=== PATIENT | male | born 1995 | race Caucasian/White ===

== ENCOUNTER 2022-06-15 09:30 | Emergency (ER) | payer OTHER, SELFPAY ==
--- NOTE | ~2022-06-15 | CT_ITS ---
EXAMINATION: CT cervical spine wo con DATE: 06/15/2022 11:18 INDICATION: Head injury TECHNIQUE: Computed tomography (CT) of the cervical spine was performed without intravenous contrast. Automated exposure control and iterative reconstruction technique were employed. The dose-length pro duct was 544.66 mGy-cm. COMPARISON: None FINDINGS: Mild reversal of the normal cervical lordosis most likely positional although differential would incl ude muscle spasm. No spondylolisthesis or facet subluxation. Vertebral body and disc heights are norm al. No fracture. Cervical facet and uncovertebral joints are normal. Cervical soft tissues are unrema rkable. Visualized apices of the lungs are clear. IMPRESSION: 1. Likely positional mild reversal of the normal cervical lordosis. Otherwise unremarkable cervical s pine CT. Reviewed, dictated and finalized at location A. IMPRESSION: 1. Likely positional mild reversal of the normal cervical lordosis. Otherwise u nremarkable cervical spine CT.
--- NOTE | ~2022-06-15 | CT_ITS ---
EXAMINATION: CT brain wo con DATE: 06/15/2022 11:17 INDICATION: Head injury TECHNIQUE: Computed tomography (CT) of the head was performed without intravenous contrast. Sagittal and coronal reconstructions were performed. The mA was adjusted according to patient size. Iterative reconstruction technique was employed. The dose-length product was 605.33 mGy-cm. COMPARISON: None FINDINGS: No calvarial fracture. No acute intracranial hemorrhage, acute infarction or abnormal extra axial flu id collection. Ventricles are normal and symmetric. No mass/mass effect. The orbits, paranasal sinuse s and mastoid air cells are normal. IMPRESSION: 1. Normal head CT. No fracture or acute intracranial process. Reviewed, dictated and finalized at location A.
[2022-06-15 09:36] VITALS: BP 145/73; PULSE 54; RESP 18; TEMP 36.4; O2SAT 100
[2022-06-15 11:25] VITALS: BP 128/81; PULSE 61
[2022-06-15 11:28] VITALS: BP 131/83; PULSE 68
[2022-06-15 11:30] VITALS: BP 136/99; PULSE 71
--- NOTE | 2022-06-15 12:58 | ED.HEATRA ---
HPI - Head Injury General Chief complaint: Head Injury Stated complaint: Hit head yesterday has felt dizzy since Time Seen by Provider: 06/15/22 11:20 Source: patient Mode of arrival: ambulatory Limitations: no limitations History of Present Illness HPI Narrative: Patient is a 27-year-old male who presents to the ED with report of head injury. Patient reports he was putting his son in the carseat yesterday when he stood up suddenly and hit his head against the roof of his car. Denied any LOC. Since then, patient has had intermittent dizziness/lightheadedness. He states he has a history of migraines in the past that would cause him to blackout and patient has been feeling summarily since hitting his head, which prompted his presentation. He has not had any syncopal episodes. Reports mild nausea, but denies vomiting, head or neck pain, vision changes, seizure-like activity. Related Data Home Medications Medication Instructions Recorded Confirmed propranolol 40 mg tablet 40 mg 06/15/22 Allergies Allergy/AdvReac Type Severity Reaction Status Date / Time No Known Allergies Allergy Verified 06/15/22 11:26 Review of Systems Review of Systems: CONSTITUTIONAL: Denies fever, chills, or sweats. EYES: Denies visual changes. CARDIOVASCULAR: Denies chest pain. RESPIRATORY: Denies dyspnea. GASTROINTESTINAL: See HPI. MUSCULOSKELETAL: Denies back pain, neck pain. NEUROLOGIC: See HPI. All systems reviewed & are unremarkable except as noted in HPI and below PMFSH Past Medical History Medical History (Updated 06/15/22 @ 15:46 by Pat Salcedo PA-C) Migraines Surgical History Surgical History (Updated 06/15/22 @ 15:46 by Pat Salcedo PA-C) No pertinent past surgical history Social History Social History (Updated 06/15/22 @ 15:46 by Pat Salcedo PA-C) Smoking status: Never smoker Exam Narrative: GENERAL: Well appearing, obese, non-toxic, in no acute distress. HEAD: Normocephalic, atraumatic. ENT: PERRL/EOMI, conjunctivae clear bilaterally. No nystagmus. No raccoon eyes. No gross sign. NECK: Supple. No adenopathy, no masses. No significant midline or paraspinal muscular tenderness. RESPIRATORY: Airway patent, respirations nonlabored. Clear to auscultation bilaterally, no rales, rhonchi, wheezing. CARDIOVASCULAR: Regular rate and rhythm without murmurs, rubs, or gallops. Radial pulses 2+ and equal bilaterally. MUSCULOSKELETAL: Moves all extremities. Strength/ROM intact without gross deformities. SKIN: Warm, dry, normal color. No rashes. NEURO: A&O X3. Speech clear. Follows commands. CN II-XII grossly intact. Sensation grossly intact. Steady gait. No ataxic movements. Strength 5/5 in upper and lower extremities bilaterally. Equal public message service supervisor strength bilaterally. PSYCHIATRIC: Appropriate mood and affect. Normal interaction. Course Vital Signs Vital signs: Vital Signs Temperature 97.5 F L 06/15/22 09:36 Pulse Rate 54 L 06/15/22 09:36 Respiratory Rate 18 06/15/22 09:36 Blood Pressure 145/73 H 06/15/22 09:36 Pulse Oximetry 100 06/15/22 09:36 Oxygen Delivery Room Air 06/15/22 09:36 Temperature 97.5 F L 06/15/22 09:36 Pulse Rate 55 L 06/15/22 14:51 Respiratory Rate 18 06/15/22 14:51 Blood Pressure 125/82 06/15/22 14:51 Pulse Oximetry 100 06/15/22 14:51 Oxygen Delivery Room Air 06/15/22 09:36 MDM - Head Injury MDM Narrative Medical decision making narrative: Patient presented to ED status post head injury yesterday, no LOC, complaining of dizziness/LH/nausea. Patient's vitals stable upon arrival. Neurologically intact upon exam. No focal deficits. CT scan of head and neck negative for acute findings. Discussed imaging with patient and likelihood of mild concussion causing symptoms. I discussed the management of concussion and advised close follow-up with primary care doctor. Patient reports he has an appointment on Saturday. Patient was given fluids
[2022-06-15] MEDS: SODIUM CHLORIDE 0.9% IV 1,000 ML 999 ML IV CONT (13:29)
[2022-06-15] MEDS: ONDANSETRON INJ 4 MG/2 ML VIAL IV PUSH (13:29)
[2022-06-15 13:43] VITALS: BP 124/70; PULSE 72; RESP 20; O2SAT 100
[2022-06-15 14:51] VITALS: BP 125/82; PULSE 55; RESP 18; O2SAT 100
== END 2022-06-15 14:52 | disposition home or self-care (01) ==
PROVIDERS: Emergency Provider Physician Assistant
DX: S06.0X0A Concussion without loss of consciousness, initial encounter (principal)
CPT/HCPCS: 70450; 72125; 96361; 96374; 99284; J2405; J7030